=== PATIENT | male | born 1980 | race Hispanic/Latino ===

== ENCOUNTER 2017-09-26 00:57 | Emergency (ER) | payer OTHER, SELFPAY ==
[2017-09-26] MEDS ORDERED: SODIUM CHLORIDE 0.9% 1000ML 1,000 ML IV ONE (01:35)
[2017-09-26] MEDS ORDERED: ONDANSETRON HCL 4 MG/2 ML VIAL ONE (01:35)
[2017-09-26] MEDS ORDERED: KETOROLAC TROMETHAMINE 30MG/ML ONE (01:36)
[2017-09-26 01:39] LABS: BASOPHILS % (AUTO) 0.8 % (0.0-5.0); EOSINOPHILS % (AUTO) 4.2 % (0.0-8.0); HEMATOCRIT 39.3 % (42-54); MEAN CORPUSCULAR HEMOGLOBIN 31.4 pg (27.0-33.0); MEAN CORPUSCULAR HGB CONC 35.1 g/dL (32.0-36.0); MEAN CORPUSCULAR VOLUME 89.6 fL (79-99); MONOCYTES % (AUTO) 7.9 % (3.0-13.0); NEUTROPHILS % (AUTO) 51.1 % (40.0-77.0); PLATELET COUNT (AUTO) 266 K/uL (130-400); RED BLOOD CELL COUNT(AUTO) 4.38 MIL/uL (4.50-6.20); RED CELL DISTRIBUTION WIDTH 12.9 % (11.0-15.5); WHITE BLOOD COUNT (AUTO) 10.9 K/uL (4.8-10.8)
[2017-09-26 01:43] LABS: CREATININE 1.2 mg/dL (0.5-1.5); POTASSIUM 3.6 mmol/L (3.5-5.1)
[2017-09-26 01:47] LABS: BILIRUBIN,TOTAL 0.5 mg/dL (0.2-1.0); TOTAL PROTEIN, SERUM 7.3 g/dL (6.0-8.3)
[2017-09-26] MEDS ORDERED: HYDROMORPHONE HCL 0.5 MG/0.5 ML ML ONE (02:29)
[2017-09-26] MEDS ORDERED: TRAMADOL HCL 50 MG TABLET ONE (03:14)
[2017-09-26] MEDS ORDERED: TAMSULOSIN HCL 0.4 MG CAP.ER.24H ONE (03:14)
== END 2017-09-26 03:44 | disposition home or self-care (01) ==
LOC: EDH 00:57
DX: N20.2 Calculus of kidney with calculus of ureter (principal); Z72.0 Tobacco use
CPT/HCPCS: 36415; 74176; 80053; 82150; 83690; 85025; 96374; 96375; 99285; J1170; J1885; J2405; J7030

== ENCOUNTER 2019-04-28 07:33 | Emergency (ER) | payer OTHER, SELFPAY ==
[2019-04-28 08:12] LABS: BASOPHILS % (AUTO) 0.4 % (0.0-5.0); EOSINOPHILS % (AUTO) 1.5 % (0.0-8.0); HEMATOCRIT 43.5 % (42-54); LYMPHOCYTES % (AUTO) 13.2 % (21.0-51.0); MEAN CORPUSCULAR HEMOGLOBIN 29.9 pg (27.0-33.0); MEAN CORPUSCULAR HGB CONC 32.6 g/dL (32.0-36.0); MEAN CORPUSCULAR VOLUME 91.6 fL (79-99); MONOCYTES % (AUTO) 5.3 % (3.0-13.0); NEUTROPHILS % (AUTO) 79.3 % (40.0-77.0); PLATELET COUNT (AUTO) 316 K/uL (130-400); RED BLOOD CELL COUNT(AUTO) 4.75 MIL/uL (4.50-6.20); RED CELL DISTRIBUTION WIDTH 12.9 % (11.0-15.5); WHITE BLOOD COUNT (AUTO) 11.6 K/uL (4.8-10.8)
[2019-04-28 08:27] LABS: APPEARANCE,URINE CLEAR (CLEAR); BILIRUBIN,URINE NEGATIVE (NEGATIVE); COLOR,URINE YELLOW (YELLOW); GLUCOSE, URINE (UA) NEGATIVE (NEGATIVE); KETONES,URINE NEGATIVE (NEGATIVE); LEUKOCYTE ESTERASE ,URINE NEGATIVE (NEGATIVE); NITRATE,URINE NEGATIVE (NEGATIVE); OCCULT BLOOD,URINE NEGATIVE (NEGATIVE); PROTEIN,URINE TRACE mg/dL (NEGATIVE); UROBILINOGEN,URINE 0.2 mg/dL (0.2-1.0)
[2019-04-28 08:29] LABS: INR 0.95 (0.85-1.15); PARTIAL THROMBOPLASTIN TIME 26.1 SEC (26.3-35.5)
[2019-04-28 08:32] LABS: POTASSIUM 3.8 mmol/L (3.5-5.1)
[2019-04-28 08:36] LABS: ALBUMIN 4.3 g/dL (3.5-5.0); BILIRUBIN,TOTAL 0.8 mg/dL (0.2-1.0); TOTAL PROTEIN, SERUM 7.7 g/dL (6.0-8.3)
[2019-04-28] MEDS ORDERED: SODIUM CHLORIDE 0.9% 1000ML 1,000 ML IV ONE (08:53)
[2019-04-28] MEDS ORDERED: ONDANSETRON HCL 4 MG/2 ML VIAL ONE (08:53)
[2019-04-28 08:56] LABS: BACTERIA,URINE Rare /HPF (None Seen); CALCIUM OXALATE CRYSTALS,UR Few /LPF (None Seen); RBC,URINE 0-1 /HPF (0-1); SQUAMOUS EPITHELIAL CELL,UR Few /HPF (0-2); WBC,URINE 0-1 /HPF (0-1)
== END 2019-04-28 11:06 | disposition home or self-care (01) ==
LOC: EDH 07:33
DX: K52.9 Noninfective gastroenteritis and colitis, unspecified (principal); E86.0 Dehydration; R79.1 Abnormal coagulation profile
CPT/HCPCS: 36415; 74176; 80053; 81001; 82150; 82550; 83690; 84484; 85025; 85610; 85730; 93005; 96361; 96374; 99285; J2405; J7030

== ENCOUNTER 2023-05-22 17:21 | Emergency (ER) | payer OTHER, SELFPAY ==
[~2023-05-22] VITALS: Ht 157.5 cm; Wt 70.8 kg
[2023-05-22] MEDS ORDERED: KETOROLAC 30MG VIAL (30MG/ML) IVP ONE (18:00)
[2023-05-22] MEDS ORDERED: TETANUS/DIPHTHERIA TOXOID [ADULT] 0.5 ML VIAL IM ONE (18:00)
[2023-05-22 18:06] LABS: BASOPHILS # (AUTO) 0.04 K/uL (0.00-0.20); BASOPHILS % (AUTO) 0.3 % (0.0-5.0); EOSINOPHILS # (AUTO) 0.08 K/uL (0.00-0.70); EOSINOPHILS % (AUTO) 0.6 % (0.0-8.0); HEMATOCRIT 41.7 % (42-54); IMMATURE GRANULOCYTE ABSOLUTE 0.05 K/uL (0-1); LYMPHOCYTES # (AUTO) 2.2 K/uL (1.0-4.8); LYMPHOCYTES % (AUTO) 16.6 % (21.0-51.0); MEAN CORPUSCULAR HEMOGLOBIN 30.7 pg (27.0-33.0); MEAN CORPUSCULAR HGB CONC 34.1 g/dL (32.0-36.0); MEAN CORPUSCULAR VOLUME 90.3 fL (79-99); MONOCYTES # (AUTO) 0.7 K/uL (0.1-1.0); MONOCYTES % (AUTO) 5.1 % (3.0-13.0); PLATELET COUNT (AUTO) 317 K/uL (130-400); RED BLOOD CELL COUNT(AUTO) 4.62 MIL/uL (4.50-6.20); RED CELL DISTRIBUTION WIDTH 12.6 % (11.0-15.5)
[2023-05-22 18:20] LABS: INR < 0.93 (0.85-1.15); PROTHROMBIN TIME 10.7 SEC (9.6-11.6)
[2023-05-22 18:21] LABS: PARTIAL THROMBOPLASTIN TIME 24.9 SEC (26.3-35.5)
[2023-05-22 18:25] LABS: CARBON DIOXIDE 29 mmol/L (21-32); CHLORIDE 102 mmol/L (101-111); CREATININE 0.9 mg/dL (0.5-1.5); GLOMERULAR FILTR. RATE CALC 108 mL/min (>90); GLUCOSE,RANDOM 73 mg/dL (70-105); POTASSIUM 3.4 mmol/L (3.5-5.1); SODIUM SERUM 141 mmol/L (136-145); UREA NITROGEN, BLOOD 14 mg/dL (7-18)
[2023-05-22 18:30] LABS: ALANINE AMINOTRANSFERASE 23 U/L (12-78); ALBUMIN 4.5 g/dL (3.5-5.0); ALCOHOL, BLOOD < 3 mg/dL (0-10); ASPARTATE AMINOTRANSFERASE 21 U/L (10-37); BILIRUBIN,TOTAL 0.5 mg/dL (0.2-1.0); TOTAL PROTEIN, SERUM 7.9 g/dL (6.0-8.3)
[2023-05-22] MEDS ORDERED: IBUP-1493 PO (19:41)
[2023-05-22 19:53] LABS: APPEARANCE,URINE CLEAR (CLEAR); BILIRUBIN,URINE NEGATIVE (NEGATIVE); COLOR,URINE YELLOW (YELLOW); GLUCOSE, URINE (UA) NEGATIVE (NEGATIVE); KETONES,URINE 40 mg/dL (NEGATIVE); LEUKOCYTE ESTERASE ,URINE NEGATIVE Leu/uL (NEGATIVE); NITRATE,URINE NEGATIVE (NEGATIVE); OCCULT BLOOD,URINE NEGATIVE (NEGATIVE); PROTEIN,URINE 30 mg/dL (NEGATIVE)
[2023-05-22 19:58] LABS: ADD UA MICROSCOPIC YES
[2023-05-22] MEDS ORDERED: HYDROMORPHONE 1 MG INJ IVP ONE (20:00)
[2023-05-22] MEDS ORDERED: MIDAZOLAM HCL 5 MG/ML 2ML VIAL IV ONE (20:00)
[2023-05-22 20:05] LABS: BACTERIA,URINE FEW /HPF (None Seen); CALCIUM OXALATE CRYSTALS,UR RARE /LPF (None Seen); MUCUS,URINE MANY LPF (None Seen); SQUAMOUS EPITHELIAL CELL,UR RARE /HPF (0-2)
[2023-05-22 20:12] VITALS: PULSE 79; RESP 18; O2SAT 98
[2023-05-22] MEDS ORDERED: ONDANSETRON 4MG INJ ONE (20:27)
[2023-05-22 21:28] VITALS: BP 134/62; PULSE 65; RESP 18; O2SAT 98
[2023-05-22] MEDS ORDERED: ONDANSETRON 4MG INJ IVP ONE (21:30)
== END 2023-05-22 22:34 | disposition home or self-care (01) ==
LOC: EDH 17:21
DX: S52.592A Other fractures of lower end of left radius, initial encounter for closed fracture (principal); Z79.899 Other long term (current) drug therapy; W11.XXXA Fall on and from ladder, initial encounter; Y93.89 Activity, other specified; Y92.89 Other specified places as the place of occurrence of the external cause; Y99.8 Other external cause status
CPT/HCPCS: 99285; 70450; 96374; 96375; 80053; 85025; 85610; 85730; 82948; 81001; 36415; 90714; 73090; 73130; 73110; 72125; 71250; 74176; 90471; 93005; 73100; J1170; J2405 ×2; J1885; J2250; 96376

== ENCOUNTER 2023-06-15 16:45 | Emergency (ER) | payer OTHER ==
[~2023-06-15] VITALS: Ht 157.5 cm; Wt 68.0 kg
[~2023-06-15 16:45] MED LIST: IBUP-1493 PO
[2023-06-15 16:52] VITALS: BP 146/76; PULSE 69; RESP 18
== END 2023-06-15 19:12 | disposition home or self-care (01) ==
LOC: EDH 16:45
DX: M79.631 Pain in right forearm (principal)
CPT/HCPCS: 99281

== ENCOUNTER 2025-01-24 12:53 | Emergency (ER) | payer MEDICAID ==
[~2025-01-24] VITALS: Ht 162.6 cm; Wt 73.9 kg
[2025-01-24] MEDS: 0.9%NACL 1000ML 1,000 ML IV STA (12:59)
--- NOTE | 2025-01-24 13:37 | HMCIMG ---
EXAM: CT Head Without IV contrast. CLINICAL HISTORY: dizziness, nausea, vomiting TECHNIQUE: Axial computed tomography images of the head/brain without intravenous contrast. COMPARISON: None provided. FINDINGS: BRAIN: No evidence of acute hemorrhage. No mass lesion. No CT evidence for acute territorial infarct. No midline shift or extra-axial collections. VENTRICLES: No hydrocephalus. ORBITS: The orbits are unremarkable. SINUSES AND MASTOIDS: The paranasal sinuses and mastoid air cells are clear. BONES: No fracture. SOFT TISSUES: Unremarkable. IMPRESSION: No acute intracranial abnormality. /[place]
[2025-01-24 13:38] LABS: IMMATURE GRANULOCYTE ABSOLUTE 0.05 K/uL (0-1); NUCLEATED RED BLOOD CELLS 0.0 % (0.0-0.19); PLATELET COUNT (AUTO) 372 K/uL (130-400); RED BLOOD CELL COUNT(AUTO) 4.94 MIL/uL (4.50-6.20); RED CELL DISTRIBUTION WIDTH 12.7 % (11.0-15.5); WHITE BLOOD COUNT (AUTO) 12.0 K/uL (4.8-10.8)
[2025-01-24 13:46] LABS: CREATININE 1.2 mg/dL (0.5-1.3); GLOMERULAR FILTR. RATE CALC 76.0 mL/min (>90); GLUCOSE,RANDOM 95.0 mg/dL (70-105); SODIUM SERUM 134.0 mmol/L (136-145); UREA NITROGEN, BLOOD 20.0 mg/dL (7-18)
[2025-01-24 13:51] LABS: CREATINE KINASE, TOTAL 310.0 U/L (21-232)
--- NOTE | 2025-01-24 15:09 | ERN ---
ED Note History of Present Illness Stated Complaint: CRAMPS TO GENERAL BODY Chief Complaint: Other Problems Time Seen by MD: 12:54 Time Seen by Midlevel: 13:00 Dictation: 44-year-old male with no past medical history coming in with complaints of generalized crampy, nausea or vomiting dizziness onset yesterday. Patient states he works outside [employer]. Patient states he does smoke cigarettes and smokes marijuana denies any EtOH. Allergies: Coded Allergies: No Known Drug Allergies (Unverified Allergy, Unknown, 05/22/23) Home Meds Active Scripts Meclizine HCl (Meclizine HCl) 25 Mg Tablet, 25 MG PO TID for vertigo, #10 TAB 0 Refills Prov:SIMONE PALMER NP 01/24/25 Ibuprofen (Motrin/Advil) 800 Mg Tab, 800 MG PO TID, #30 TAB Prov:GIOVANI WILKERSON MD 05/22/23 Past Medical History Past Medical History: No Pertinent History Surgical History: None Family History: Negative Social History: Negative, Lives with family Review of System Dictation Constitutional: Negative for fever,chills, and weight loss, complaining of generalized cramping Eyes: Negative for injury, pain,redness, and discharge ENT: Negative for injury,pain or swelling Cardiovascular: Negative for chest pain, palpitations, and edema Respiratory: Negative for shortness of breath, cough, and wheezing, Abdomen/GI: Negative for abdominal pain, nausea, vomiting, diarrhea, and constipation Back: Negative for injury and pain : Negative for injury, bleeding and discharge MS/Extremity: Negative for injury and deformity Skin: Negative for rash, and discoloration Neuro: Negative for headache, weakness, numbness, tingling, and seizure , complaining of dizziness Psych: Negative for suicide ideation, homicidal ideation, and hallucinations Review of Systems: was completed Initial Vital Sign VS Vital Signs Date Time Temp Pulse Resp B/P (MAP) Pulse Ox O2 Delivery O2 Flow Rate FiO2 01/24/25 12:54 97.7 97 18 140/91 98 Room Air 01/24/25 16:39 0 21 Physical Exam Dictation MDM: Differential diagnosis: Rationale: Tests considered and ordered secondary to shared decision making include: Previous outside records reviewed: Old ER visits. Risk of complication and/or morbidity or mortality of patient management: None Medications-Per medication reconciliation Need for hospitalization: Patient does not meet criteria for hospitalization. Need for emergency major/minor surgery: No There are no social concerns with this patient. Prescription drug management Prescriptions will include symptomatic care Patient's prior external medical records from other ER visits were reviewed by me as indicated. Prior testing and results from previous visits were reviewed. Prior tests were taken into account with medical decision making and resource utilization, independent historian/historians were used to obtain complete medical history. I independently interpreted the test that were performed, results were reviewed by me and considered findings on radiology if ordered. Medical management and examination interpretation discussions were had by me with other qualified healthcare professionals as indicated for the patient's care. Results (Laboratory/Radiology) Laboratory/Radiology Laboratory Tests Test 01/24/25 13:31 01/24/25 17:08 White Blood Count 12.0 K/uL (4.8-10.8) H Red Blood Count 4.94 MIL/uL (4.50-6.20) Hemoglobin 15.0 g/dL (14.0-18.0) Hematocrit 43.9 % (42-54) Mean Corpuscular Volume 88.9 fL (79-99) Mean Corpuscular Hemoglobin 30.4 pg (27.0-33.0) Mean Corpuscular Hemoglobin Concent 34.2 g/dL (32.0-36.0) Red Cell Distribution Width 12.7 % (11.0-15.5) Platelet Count 372 K/uL (130-400) Mean Platelet Volume 9.4 fL (7.5-10.5) Immature Granulocyte % (Auto) 0.4 % (0-1) Neutrophils (%) (Auto) 69.0 % (40.0-77.0) Lymphocytes (%) (Auto) 23.3 % (21.0-51.0) Monocytes (%) (Auto) 6.6 % (3.0-13.0) Eosinophils (%) (Auto) 0.3 % (0.0-8.0) Basophils (%) (Auto) 0.4 % (0.0-5.0) Neutrophils # (Auto) 8.3 K/uL (1.8-7.7) H Lymphocytes # (Auto) 2.8 K/uL (1.0-4.8) Monocytes # (Auto) 0.8 K/uL (0.1-1.0) Eosinophils # (Auto) 0.04 K/uL (0.00-0.70) Basophils # (Auto) 0.05 K/uL (0.00-0.20) Absolute Immature Granulocyte (auto 0.05 K/uL (0-1) Nucleated Red Blood Cells 0.0 % (0.0-0.19) Sodium Level 134 mmol/L (136-145) L Potassium Level 3.6 mmol/L (3.5-5.1) Chloride Level 97 mmol/L (101-111) L Carbon Dioxide Level 28 mmol/L (21-32) Blood Urea Nitrogen 20 mg/dL (7-18) H Creatinine 1.2 mg/dL (0.5-1.3) Glomerular Filtration Rate Calc 76 mL/min (>90) Random Glucose 95 mg/dL (70-105) Total Calcium 9.8 mg/dL (8.5-10.1) Total Creatine Kinase 310 U/L (21-232) #H Troponin I High Sensitivity 15 ng/L (4-75) Urine Color YELLOW (YELLOW) Urine Appearance CLOUDY (CLEAR) H Urine pH 5.5 (5.0-8.0) Urine Specific [place] 1.031 (1.001-1.031) Urine Protein 30 mg/dL (NEGATIVE) H Urine Glucose (UA) NEGATIVE mg/dL (NEGATIVE) Urine Ketones NEGATIVE mg/dL (NEGATIVE) Urine Occult Blood NEGATIVE (NEGATIVE) Urine Nitrate NEGATIVE (NEGATIVE) Urine Bilirubin NEGATIVE mg/dL (NEGATIVE) Urine Urobilinogen 0.2 mg/dL (0.2-1.0) Urine Leukocyte Esterase NEGATIVE [place]/uL Urine RBC 11-25 /HPF (0-1) H Urine WBC 6-10 /HPF (0-1) H Urine Squamous Epithelial Cells RARE /HPF (0-2) Urine Calcium Oxalate Crystals RARE /LPF (None Seen) Urine Other Crystals (Auto) 13 /HPF (None Seen) Urine Amorphous Crystals (Auto) FEW /LPF (None Seen) Urine Bacteria RARE /HPF (None Seen) Urine Hyaline Casts 6-10 /LPF (0-1 /LPF) H Urine Other Casts 13 /LPF (None Seen) Urine Yeast RARE /HPF (None Seen) Urine Opiates Screen NEGATIVE (NEGATIVE) Urine Barbiturates Screen NEGATIVE (NEGATIVE) Urine Phencyclidine Screen NEGATIVE (NEGATIVE) Urine Amphetamines Screen NEGATIVE (NEGATIVE) Urine Benzodiazepines Screen NEGATIVE (NEGATIVE) Urine Cocaine Screen NEGATIVE (NEGATIVE) Urine Marijuana (THC) Screen POSITIVE (NEGATIVE) H Labs Reviewed?: Yes X-RAY Comment: [place] [id number] [address] IMAGING REPORT Signed PATIENT: JEREMIAS SEARS MR#: [id number] : 1980 SEX: M AGE: 44 LOCATION: ED ORDER 1305 STATUS: [facility] REPORT#: [id number] SERVICE 1259 REASON: cp ORDERING PHYSICIAN: SIMONE PALMER NP PROCEDURE: CXR1VW - CHEST 1VW EXAM: CR Chest, 1 View. CLINICAL HISTORY: cp COMPARISON: None provided. FINDINGS: LUNGS: The lungs show no infiltrate or other acute finding. PLEURAL SPACES: No pleural effusion or pneumothorax. MEDIASTINUM: Cardiac size and mediastinal contours within normal limits. BONES: No acute osseous abnormality. IMPRESSION: No acute cardiopulmonary pathology is evident. /[place] DICTATED BY: GUERRERO ANDERSON MD DATE: 01/24/251625 ELECTRONICALLY SIGNED BY: GUERRERO ANDERSON MD DATE: 01/24/251625 CT Scan Comment: [place] [id number] [address] IMAGING REPORT Signed PATIENT: JEREMIAS SEARS MR#: [id number] : 1980 SEX: M AGE: 44 LOCATION: ED ORDER 1305 STATUS: [facility] ER REPORT#: [id number] SERVICE 1259 REASON: dizziness, nausea, vomiting ORDERING PHYSICIAN: SIMONE PALMER NP PROCEDURE: HEAD WO - CT HEAD/BRAIN W/O CONTRAST EXAM: CT Head Without IV contrast. CLINICAL HISTORY: dizziness, nausea, vomiting TECHNIQUE: Axial computed tomography images of the head/brain without intravenous contrast. COMPARISON: None provided. FINDINGS: BRAIN: No evidence of acute hemorrhage. No mass lesion. No CT evidence for acute territorial infarct. No midline shift or extra-axial collections. VENTRICLES: No hydrocephalus. ORBITS: The orbits are unremarkable. SINUSES AND MASTOIDS: The paranasal sinuses and mastoid air cells are clear. BONES: No fracture. SOFT TISSUES: Unremarkable. IMPRESSION: No acute intracranial abnormality. /[place] DICTATED BY: NEETA OLVERA Jr., MD DATE: 01/24/251435 ELECTRONICALLY SIGNED BY: NEETA OLVERA Jr., MD DATE: 01/24/251435 ED Course ED Course Orders Procedure Category Date Status Time Cbc With Differential LAB 01/24/25 Complete 12:59 Basic Metabolic Panel LAB 01/24/25 Complete 12:59 Troponin I High LAB 01/24/25 Complete Sensitivity 12:59 Creatine Kinase, Total LAB 01/24/25 Complete 12:59 Urinalysis Profile LAB 01/24/25 Complete 12:59 Drug Screen Urine LAB 01/24/25 Complete 12:59 Chest 1vw RAD 01/24/25 Resulted 12:59 Ct Head/Brain W/O CT 01/24/25 Resulted Contrast 12:59 0.9%Nacl 1000ml (Ns PHA 01/24/25 Complete 1000ml) 12:59 Ondansetron 4mg Inj PHA 01/24/25 Complete (Zofran 4mg Inj) 13:00 Meclizine Hcl 25 Mg PHA 01/24/25 Complete (Antivert 25 Mg) 13:00 Culture Urine CHELSIE 01/24/25 In Process 17:26 Current Medications Medications (Trade) Dose Ordered Sig/Francisco Route PRN Reason Start Time Stop Time Status Last Admin Dose Admin Meclizine HCl (ANTIvert 25 mg) 25 mg ONCE ONCE PO 01/24/25 13:00 01/24/25 13:07 DC 01/24/25 13:00 Ondansetron HCl (zoFRAN 4MG INJ) 4 mg ONCE ONCE IVP 01/24/25 13:00 01/24/25 13:07 DC 01/24/25 13:00 Sodium Chloride 1,000 ml @ 1,000 mls/hr Q1H STAT IV 01/24/25 12:59 01/24/25 13:58 DC 01/24/25 12:59 Vital Signs Date Time Temp Pulse Resp B/P (MAP) Pulse Ox O2 Delivery O2 Flow Rate FiO2 01/24/25 17:56 98.1 81 20 132/64 99 Room Air* 0 21 01/24/25 16:39 99.1 89 20 132/78 99 Room Air* 0 21 01/24/25 12:54 97.7 97 18 140/91 98 Room Air Medical Decision Making MDM MDM: 44-year-old male with no past medical history coming in with complaints of generalized crampy, nausea or vomiting dizziness onset yesterday. Patient states he feels like the room is spinning worsening when he moves. Patient states he works outside [employer]. Patient states he does smoke cigarettes and smokes marijuana denies any EtOH. Patient denies any chest pain, chest dis comfort, shortness a breath, jaw pain, back pain. CBC shows white count of , no anemia, no thrombocytopenia. Chemistry shows mild hyponatremia at 134, chloride of 97, normal creatinine. CK of 310. Troponin is negative. Urine shows no evidence of urinary tract infection. And toxicology shows positive for marijuana. CT scan of the head shows no acute finding. After fluids and meclizine patient states he feels much better. Discussed with the patient possibility of symptoms could be related to dehydration any cc PCP and stay hydrated. Educated patient to avoid smoking marijuana has been no with the drugs or laced with anything potentially exacerbate dehydration. Patient verbalized understanding, answered all questions. Differential diagnosis: Dehydration, rhabdomyolysis, vertigo, drug use Rationale: Tests considered and ordered secondary to shared decision making include: Previous outside records reviewed: Old ER visits. Risk of complication and/or morbidity or mortality of patient management: None Medications-Per medication reconciliation Need for hospitalization: Patient does not meet criteria for hospitalization. Need for emergency major/minor surgery: No There are no social concerns with this patient. Prescription drug management Prescriptions will include symptomatic care Patient's prior external medical records from other ER visits were reviewed by me as indicated. Prior testing and results from previous visits were reviewed. Prior tests were taken into account with medical decision making and resource utilization, independent historian/historians were used to obtain complete medical history. I independently interpreted the test that were performed, results were reviewed by me and considered findings on radiology if ordered. Medical management and examination interpretation discussions were had by me with other qualified healthcare professionals as indicated for the patient's care. DX & DISP Disposition: Discharge Departure Impression: Primary Impression: Dehydration Additional Impression: Cannabinosis Condition: Stable Scripts Meclizine HCl (Meclizine HCl) 25 Mg Tablet 25 MG PO TID for vertigo, #10 TAB 0 Refills Prov: SIMONE PALMER NP 01/24/25 Additional Instructions: Stay hydrated with your outside working. Drink electrolytes. Follow up with your primary doctor. Avoid smoking marijuana has been do not know with the drug is laced with. [facility] if you have any worsening symptoms. Referrals: OTILIA BECKER MD (PCP) Time of Disposition: 17:51 I have reviewed the case, and I agree with, Diagnosis and Plan SIMONE PALMER NP Jan 24, 2025 15:09 HEMALATHA CASTELLANOS DO Jan 24, 2025 18:14
--- NOTE | 2025-01-24 15:27 | HMCIMG ---
EXAM: CR Chest, 1 View. CLINICAL HISTORY: cp COMPARISON: None provided. FINDINGS: LUNGS: The lungs show no infiltrate or other acute finding. PLEURAL SPACES: No pleural effusion or pneumothorax. MEDIASTINUM: Cardiac size and mediastinal contours within normal limits. BONES: No acute osseous abnormality. IMPRESSION: No acute cardiopulmonary pathology is evident. /[place]
[2025-01-24 17:20] LABS: ADD UA MICROSCOPIC YES; APPEARANCE,URINE CLOUDY (CLEAR); GLUCOSE, URINE (UA) NEGATIVE (NEGATIVE); LEUKOCYTE ESTERASE ,URINE NEGATIVE Leu/uL (NEGATIVE); NITRATE,URINE NEGATIVE (NEGATIVE); OCCULT BLOOD,URINE NEGATIVE (NEGATIVE)
[2025-01-24 17:25] LABS: CALCIUM OXALATE CRYSTALS,UR RARE /LPF (None Seen); OTHER CASTS, URINE 13 /LPF (None Seen); SQUAMOUS EPITHELIAL CELL,UR RARE /HPF (0-2); UNCLASSIFIED CRYSTAL 13 /HPF (None Seen); YEAST,URINE BUDDING RARE /HPF (None Seen)
[2025-01-24 17:27] LABS: AMPHET/METH SCREEN,URINE NEGATIVE (NEGATIVE); BARBITURATE SCREEN, URINE NEGATIVE (NEGATIVE); CANNABINOID SCREEN,URINE POSITIVE (NEGATIVE); COCAINE SCREEN,URINE NEGATIVE (NEGATIVE)
[2025-01-24] MEDS ORDERED: MECL-302 PO (17:54)
[2025-01-24 17:56] VITALS: BP 132/64; PULSE 81; RESP 20; TEMP 98.1; O2SAT 99
== END 2025-01-24 18:09 | disposition home or self-care (01) ==
LOC: EDH 12:53
DX: E86.0 Dehydration (principal); J66.2 Cannabinosis; Z79.1 Long term (current) use of non-steroidal anti-inflammatories (NSAID); Z79.899 Other long term (current) drug therapy
CPT/HCPCS: 99285; 96374; 70450; 96361; 71045; 82550; 84484; 80048; 80305; 85025; 87086; 36415; 81001; J7030; J2405